=== PATIENT | female | born 1960 | race Caucasian/White ===

== ENCOUNTER 2018-02-17 15:50 | Emergency (ER) | payer OTHER ==
[2018-02-17] MEDS ORDERED: SODIUM CHLORIDE 0.9% 1,000 ML IV ONE (16:04)
--- NOTE | 2018-02-17 16:07 | ED Physician Documentation ---
History of Present Illness - Stated complaint Stated Complaint: SHAKY, RAPID HR - Chief complaint Chief Complaint: Cardiac - Additonal information Additional information: hx from pt 57 f healthy, no home meds etc visiting from [place] for the holiday to ED with approx 1-2 hr of rapid palp and a sensation of fullness in her throat unable to swallow and feeling shaky no fever no cough no CP no SOA has had occ twinges of pain to lower R ribs for a few weeks not severe and no related to eating flew on a plane but no leg pain or swelling, no personal or fhx of DVT PE non smoker does drink - few glasses of wine on weekends but no change of intake prior to these sx tried sudafed and clariting for these sx - but already having the palp no hx same Review of Systems Constitutional: denies: Fever Throat: denies: Sore throat Cardiac: reports: Chest pain / pressure (R lower ribs), Palpitations Respiratory: denies: Dyspnea, Cough GI: denies: Abdominal Pain, Nausea, Vomiting Musculoskeletal: denies: Extremity pain, Extremity swelling Neurologic: denies: Generalized weakness Endocrine: denies: Easy bruising / bleeding Immunocompromised: denies: Immunocompromised PD PAST MEDICAL HISTORY - Present Medications Home Medications: Ambulatory Orders Medication Instructions Recorded Confirmed No Known Home Medications 02/17/18 02/17/18 - Allergies Allergies/Adverse Reactions: Allergies Allergy/AdvReac Type Severity Reaction Status Date / Time Penicillins Allergy Hives Verified 02/17/18 15:58 PD ED PE NORMAL - Vitals Vital signs reviewed: Yes - General General: Alert and oriented X 3 - HEENT HEENT: PERRL, Moist mucous membranes (no PNS no uvuka or tonsillar swelling, no trismus, no sig deformity or swelling to ant neck, no pain with tracheal manipulation), Dentition benign (no swelling redness tenderness trismus or sublingual swelling) - Neck Neck: Supple, no meningeal sign. No: Thyroid normal (thyroid palpates slightly enlarged, no mass, no TTP over thyroid, pt describes the fullness as being located right of thyroid) - Cardiac Cardiac: RRR - Respiratory Respiratory: No respiratory distress, Clear bilaterally - Abdomen Abdomen: Soft, Non tender, Other (neg murphys) - Derm Derm: Normal color - Extremities Extremities: No deformity, No edema, No calf tenderness / cord - Neuro Neuro: Alert and oriented X 3 Results - Vitals Vitals: Vital Signs - 24 hr 02/17/18 02/17/18 02/17/18 15:55 16:45 17:00 Temperature 36.6 C Heart Rate 112 H 103 H 78 Respiratory 20 10 L Rate Blood Pressure 186/99 H 167/91 H O2 Saturation 100 97 97 02/17/18 02/17/18 17:43 17:50 Temperature Heart Rate 82 77 Respiratory 15 15 Rate Blood Pressure 142/89 H 136/85 H O2 Saturation 98 98 Oxygen O2 Source Room air - EKG (time done) 1600 Rate: Rate (enter#) (106) Rhythm: Sinus tachycardia Ischemia: ST depression (minimal - V3 and V4) Other comments: Other comments (no delta wave) - Labs Labs: Laboratory Tests 02/17/18 02/17/18 02/17/18 16:00 16:00 16:00 WBC 10.4 RBC 4.52 Hgb 14.0 Hct 42.4 MCV 93.8 MCH 30.9 MCHC 32.9 RDW 12.6 Plt Count 285 MPV 7.6 L Neut # (Auto) 5.6 Lymph # (Auto) 4.0 H Marshall # (Auto) 0.6 Eos # (Auto) 0.2 Baso # (Auto) 0.1 Absolute Nucleated RBC 0.00 Nucleated RBC % 0.0 D-Dimer Sodium 138 Potassium 3.6 Chloride 102 Carbon Dioxide 25 Anion Gap 11.0 BUN 18 Creatinine 1.0 Estimated GFR (MDRD) 57 L Glucose 158 H Lactic Acid Calcium 9.3 Magnesium Total Bilirubin 1.2 H AST 27 ALT 22 Alkaline Phosphatase 79 Troponin I < 0.04 Total Protein 8.1 Albumin 4.9 Globulin 3.2 Albumin/Globulin Ratio 1.5 Lipase 23 TSH 02/17/18 02/17/18 02/17/18 16:00 16:00 16:00 WBC RBC Hgb Hct MCV MCH MCHC RDW Plt Count MPV Neut # (Auto) Lymph # (Auto) Marshall # (Auto) Eos # (Auto) Baso # (Auto) Absolute Nucleated RBC Nucleated RBC % D-Dimer < 200.0 L Sodium Potassium Chloride Carbon Dioxide Anion Gap BUN Creatinine Estimated GFR (MDRD) Glucose Lactic Acid 2.2 Calcium Magnesium Total Bilirubin AST ALT Alkaline Phosphatase Troponin I Total Protein Albumin Globulin Albumin/Globulin Ratio Lipase TSH 3.09 02/17/18 02/17/18 16:00 18:01 WBC RBC Hgb Hct MCV MCH MCHC RDW Plt Count MPV Neut # (Auto) Lymph # (Auto) Marshall # (Auto) Eos # (Auto) Baso # (Auto) Absolute Nucleated RBC Nucleated RBC % D-Dimer Sodium Potassium Chloride Carbon Dioxide Anion Gap BUN Creatinine Estimated GFR (MDRD) Glucose Lactic Acid Calcium Magnesium 2.0 Total Bilirubin AST ALT Alkaline Phosphatase Troponin I < 0.04 Total Protein Albumin Globulin Albumin/Globulin Ratio Lipase TSH - Rads (name of study) CXR Radiology: See rad report (NACPD) ST neck Radiology: See rad report (normal epiglottis) CTPA Radiology: See rad report (no pE) CT ST neck Radiology: See rad report (no mass, no abn ademopathy, no fluid collection, no abscess, thyroid not enlarged, some hypodensities inferior, spondylosis) PD MEDICAL DECISION MAKING - ED course ED course: mildly elev bili - but no RUQ TTP on exam at this time (and on later CT GB appeared nl no stones or pericholecystic fluid) d dimer neg lytes fine trop # 1 neg nl TSH lactate upper normal - and no fever nl WBC pt does drink but states no change intake - is a bit shaky - will try some ativan while proceeding with rest of work up pt was feeling better and HR down to 70s considered dc after rpt trop but with road test she is persistently tachy to 110 + so will CTPA after all and include neck to further eval the swelling CT imaging negative as well if rpt trop neg will dc rpt trop neg as well pt feeling better after the ativan - no shakes no palp etc no longer tachy even with ambulation feel safe to dc Departure - Departure Disposition: 01 Home, Self Care Clinical Impression: Palpitations Condition: Good Instructions: ED Palpitations Comments: Your work up was reassuring. The EKG showed your heart rate was a little bit fast but you were in a sinus rhythm not atrial fibrillation. The blood tests for a heart attack were negative - we repeated a 2 hr level and it was fine too which is reassuring. The xrays and CT scans were fine - no blood clot in your lungs after your recent long distance travel, heart was not enlarged, no fluid around the heart or lung, and no mass or abscess in your neck. Your thyroid feels enlarged on exam and some hypodense regions were noted on CT - please follow up with your PMD to get an ultrasound of your thyroid to evaluate for nodules The gallbladder looked fine on CT. If your right sided pains come back or get worse and last longer, especially if occurring a few hours after eating, you should speak to your PMD about getting an ultrasound of your gallbladder as well. Since you are feeling better and the work up that can be done from the ER on a holiday is reassuring, I think it is safe for you to go home for now. Please make an appointment to follow up with your PMD for a recheck when you get home. Avoid caffeine, decongestants, stimulants of any sort. If you get worse while you are visiting [place] for the holiday weekend, please come back to the ER for a recheck.
[2018-02-17 16:15] LABS: BASOPHILS # (AUTO) 0.1 10^3/uL (0.0-0.1); BASOPHILS % (AUTO) 0.9 %; EOSINOPHILS # (AUTO) 0.2 10^3/uL (0.0-0.7); EOSINOPHILS % (AUTO) 1.5 %; LYMPHOCYTES % (AUTO) 38.2 %; MEAN CORPUSCULAR HEMOGLOBIN 30.9 pg (27.0-31.0); MEAN CORPUSCULAR HGB CONC 32.9 g/dL (32.0-36.0); MEAN CORPUSCULAR VOLUME 93.8 fL (81.0-99.0); MEAN PLATELET VOLUME 7.6 fL (7.9-10.8); MONOCYTES # (AUTO) 0.6 10^3/uL (0.0-1.0); MONOCYTES % (AUTO) 5.7 %; NEUTROPHILS # (AUTO) 5.6 10^3/uL (1.5-6.6); NEUTROPHILS % (AUTO) 53.7 %; PLT - PLATELET COUNT 285 10^3/uL (130-450); RED BLOOD COUNT 4.52 10^6/uL (4.20-5.40); RED CELL DISTRIBUTION WIDTH 12.6 % (12.0-15.0); WHITE BLOOD COUNT 10.4 x10^3/uL (4.8-10.8)
[2018-02-17 16:26] LABS: ALBUMIN 4.9 g/dL (3.2-5.5); ALBUMIN/GLOBULIN RATIO 1.5 (1.0-2.2); BILIRUBIN,TOTAL 1.2 mg/dL (0.2-1.0); CALCIUM 9.3 mg/dL (8.5-10.3); TOTAL PROTEIN 8.1 g/dL (6.7-8.2)
--- NOTE | 2018-02-17 16:34 | XRAY Report ---
Reason: soa Procedure Date: 02/17/2018 Accession Number: [id number] / [id number] Procedure: XR - Chest 2 View X-Ray CPT Code: 43069 FULL RESULT: EXAM: CHEST RADIOGRAPHY EXAM DATE: 02/17/2018 04:24 PM. CLINICAL HISTORY: Shortness of air. COMPARISON: None. TECHNIQUE: 2 views. FINDINGS: Lungs/Pleura: No focal opacities evident. No pleural effusion. No pneumothorax. Normal volumes. Mediastinum: Heart and mediastinal contours are unremarkable. Other: Degenerative changes of the thoracic spine. IMPRESSION: 1. No acute disease in the chest. RADIA
--- NOTE | 2018-02-17 16:38 | XRAY Report ---
Reason: unable to swallow Procedure Date: 02/17/2018 Accession Number: [id number] / [id number] Procedure: XR - Neck Soft Tissue CPT Code: FULL RESULT: EXAM: SOFT TISSUE NECK RADIOGRAPHY EXAM DATE: 02/17/2018 04:24 PM. CLINICAL HISTORY: Unable to swallow. COMPARISONS: None. TECHNIQUE: 2 views. FINDINGS: Soft Tissues: No prevertebral soft tissue swelling. The epiglottis and aryepiglottic folds are unremarkable. No tonsillar or adenoidal enlargement. No radiopaque foreign body. Regional Skeleton: Degenerative changes of the cervical spine. Other: The visualized lung apices are clear. IMPRESSION: 1. No soft tissue abnormalities of the neck are identified. RADIA
[2018-02-17] MEDS ORDERED: IOVERSOL 320 100 ML VIAL IVP ONE ×2 (16:56→17:26)
[2018-02-17] MEDS ORDERED: LORazepam 2 MG/ML VIAL IVP STA ×2 (17:21→17:27)
--- NOTE | 2018-02-17 17:39 | CT Report ---
Reason: palp and tachycardia after long travel Procedure Date: 02/17/2018 Accession Number: [id number] / [id number] Procedure: CT - Chest Angio (PE) CPT Code: FULL RESULT: EXAM: CT ANGIOGRAM CHEST EXAM DATE: 02/17/2018 05:21 PM. CLINICAL HISTORY: Palp and tachycardia after long travel. COMPARISON: None. TECHNIQUE: Routine helical imaging was performed through the chest in the pulmonary arterial phase. IV Contrast: ISOVUE 300 80mL. Reconstructions: Coronal 3-D MIP reconstructions.Sagittal and coronal. In accordance with CT protocol optimization, one or more of the following dose reduction techniques were utilized for this exam: automated exposure control, adjustment of mA and/or KV based on patient size, or use of iterative reconstructive technique. FINDINGS: Pulmonary Arteries: Diagnostic quality: Adequate through the segmental arteries. No evidence for acute or chronic pulmonary emboli. RV/LV is within normal limits. There is no interventricular septal bowing. There is no reflux of contrast material in the IVC. Lungs/Pleura: No consolidation, nodules, or edema. No effusions or pneumothorax. Mediastinum: Normal. No cardiac enlargement or adenopathy. Thoracic Aorta: Unremarkable. Upper Abdomen: Unremarkable. Other: None. IMPRESSION: Normal pulmonary CT angiogram. No pulmonary emboli. RADIA
--- NOTE | 2018-02-17 17:56 | CT Report ---
Reason: neck fullness and swelling Procedure Date: 02/17/2018 Accession Number: [id number] / [id number] Procedure: CT - Neck Soft Tissue W/ CPT Code: FULL RESULT: EXAM: CT SOFT TISSUE NECK WITH CONTRAST. EXAM DATE: 02/17/2018 05:08 PM. HISTORY: Neck fullness, swelling. COMPARISONS: Accompany CT angiogram chest. Prior plain film soft tissue neck performed earlier today. TECHNIQUE: Routine soft tissue neck CT protocol. Reconstructions: Coronal and sagittal. IV contrast: ISOVUE 300 80mL. In accordance with CT protocol optimization, one or more of the following dose reduction techniques were utilized for this exam: automated exposure control, adjustment of mA and/or KV based on patient size, or use of iterative reconstructive technique. Findings: Relevant images are indicated (image number, series number). Limited evaluation of intracranial contents demonstrates mild/moderate generalized brain atrophy. Ventricles are not dilated. Orbital contents negative. Paranasal sinuses, mastoid air cells are clear. Small apical cyst most posterior left mandibular molar (18, 5) remaining dentition appears intact. Suprahyoid neck: No suspicious mass, fluid collection, no suspicious adenopathy. Bilateral salivary glands are unremarkable. Oral cavity negative. Vallecula clear, epiglottis negative, airway patent. Infrahyoid neck: No suspicious mass, fluid collection, no suspicious adenopathy. Thyroid not enlarged. A few minimal areas of hypodensity seen inferiorly, bilaterally. Limited evaluation lung apices are negative. There is no prevertebral soft tissue swelling. Surrounding skeletal muscles are unremarkable. Mild multilevel cervical spondylosis. Impressions: 1. No suspicious mass, fluid collection, no suspicious adenopathy. Airway patent. 2. Mild multilevel cervical spondylosis. 3. Small apical cyst most posterior left mandibular molar, correlate with dental imaging. Remaining dentition appear intact. RADIA
[2018-02-17 18:34] VITALS: BP 146/86
== END 2018-02-17 18:40 | disposition home or self-care (01) ==
LOC: ED 15:50
DX: R00.2 Palpitations (principal)
CPT/HCPCS: 36415; 70360; 70491; 71046; 71275; 80053; 83605; 83690; 83735; 84443; 84484; 85025; 85379; 93005; 96361; 96374; 96375; 99284; J2060; Q9967